=== PATIENT | female | born 1960 | race Caucasian/White ===

== ENCOUNTER 2021-09-16 10:27 | Outpatient (CLI) | payer BC | END 2021-09-16 10:28 | disposition home or self-care (01) | LOC: CSHRAD 10:27 | PROVIDERS: ATTEND Surgery | DX: M50.30 Other cervical disc degeneration, unspecified cervical region (principal); Z98.1 Arthrodesis status; Z98.890 Other specified postprocedural states; M47.812 Spondylosis without myelopathy or radiculopathy, cervical region; M43.12 Spondylolisthesis, cervical region; M43.13 Spondylolisthesis, cervicothoracic region; M43.14 Spondylolisthesis, thoracic region | CPT/HCPCS: 72040 ==

== ENCOUNTER 2023-03-08 09:00 | Outpatient (CLI) | payer BC | END 2023-03-08 09:01 | disposition home or self-care (01) | LOC: CSHCT 09:00 | PROVIDERS: ATTEND Surgery | DX: M54.2 Cervicalgia (principal); R13.10 Dysphagia, unspecified; Z98.890 Other specified postprocedural states; M47.812 Spondylosis without myelopathy or radiculopathy, cervical region; T84.226A Displacement of internal fixation device of vertebrae, initial encounter; M43.13 Spondylolisthesis, cervicothoracic region | CPT/HCPCS: 72125 ==